=== PATIENT | male | born 1995 | race Caucasian/White ===

== ENCOUNTER 2017-04-20 23:55 | Emergency (ER) | payer OTHER ==
[~2017-04-20] VITALS: Ht 182.9 cm; Wt 68.2 kg
[2017-04-21 00:30] LABS: HEMATOCRIT 45.9 % (38.0-50.0); MCH 28.9 PG (29.0-34.0); MCHC 34.6 G/DL (30.0-36.0); MCV 83.5 FL (86-99); MEAN PLAT.VOLUME 9.7 uM^3 (9.0-12.4); PLATELET COUNT 174 K/uL (156-360); RBC DIS.WIDTH-CV 11.8 % (11.8-14.6); RBC DIS.WIDTH-SD 35.8 % (39-53); WHITE BLOOD COUNT 5.1 K/uL (4.1-10.2)
[2017-04-21 01:16] LABS: CHLORIDE 100 mEq/L (99-109); POTASSIUM 4.4 mEq/L (3.7-5.4); SODIUM 137 mEq/L (136-147)
[2017-04-21 01:17] LABS: GLUCOSE 92 mg/dL (70-99)
[2017-04-21 01:19] LABS: ANION GAP 11 MEQ/L (2-14)
[2017-04-21 01:21] LABS: GFR ESTIMATE (CALCULATED) > 59 mL/min/
[2017-04-21 01:22] LABS: UREA NITROGEN (BUN) 16 mg/dL (9-23)
[2017-04-21 01:39] LABS: TOTAL BILIRUBIN 0.7 mg/dL (0.0-1.0)
[2017-04-21 01:40] LABS: ALKALINE PHOSPHATASE 61 IU/L (3-129)
[2017-04-21 01:42] LABS: DIRECT BILIRUBIN 0.3 mg/dL (0.0-0.3)
[2017-04-21 01:43] LABS: LIPASE 16 U/L (1.0-51.0)
[2017-04-21 02:57] LABS: INTERNAL CONTROL VALID? YES
[2017-04-21] MEDS ORDERED: CIPROFLOXA500 MG/5 M PO (03:26)
[2017-04-21] MEDS ORDERED: BENTYL20 MG PO (03:26)
[2017-04-21 03:35] VITALS: BP 126/87
[2017-04-21 05:18] LABS: TROP-I INTERPRETATION NEGATIVE; TROPONIN-I < 0.01 ng/mL (0.0-0.30)
== END 2017-04-21 03:35 | disposition home or self-care (01) ==
LOC: EME 23:55
PROVIDERS: Emergency Medicine
DX: A09 Infectious gastroenteritis and colitis, unspecified (principal); K29.00 Acute gastritis without bleeding; R07.9 Chest pain, unspecified; R51 Headache
CPT/HCPCS: 71020; 80048; 80076; 83630; 83690; 84484; 85027; 87506; 93005; 99281; 99284